=== PATIENT | female | born 1985 | race Caucasian/White ===

== ENCOUNTER 2017-06-21 11:31 | Emergency (ER) | payer OTHER ==
[~2017-06-21] VITALS: Ht 182.9 cm; Wt 91.2 kg
[2017-06-21 12:31] LABS: EOSINOPHIL (%) 0.9 % (0-5); EOSINOPHIL COUNT 0.1 K/uL (0-0.3); IMMATURE GRANULOCYTE (%) 0.3 % (0.0-0.7); INSTRUMENT ABS NEUTROPHIL CT 6.4 K/uL; LYMPHOCYTE COUNT 1.8 K/uL (1.0-2.8); MCH 29.9 PG (29.0-34.0); MCHC 34.6 G/DL (30.0-36.0); MCV 86.5 FL (83-99); MEAN PLAT.VOLUME 10.1 uM^3 (9.5-12.4); MONOCYTE (%) 6.6 % (3-12); MONOCYTE COUNT 0.6 K/uL (0-0.8); NEUTROPHIL (%) 71.8 % (45-76); NEUTROPHIL COUNT 6.4 K/uL (1.8-6.4); PLATELET COUNT 258 K/uL (156-360); RBC DIS.WIDTH-CV 11.9 % (11.8-14.6); RBC DIS.WIDTH-SD 37.6 % (39-53); RED BLOOD COUNT 4.51 M/uL (3.80-5.20)
[2017-06-21 12:42] LABS: CHLORIDE 107 mEq/L (99-109); POTASSIUM 4.4 mEq/L (3.7-5.4); SODIUM 138 mEq/L (136-147)
[2017-06-21 12:44] LABS: GLUCOSE 94 mg/dL (70-99)
[2017-06-21 12:45] LABS: ANION GAP 13 MEQ/L (2-14)
[2017-06-21 12:48] LABS: GFR ESTIMATE (CALCULATED) > 59 mL/min/
[2017-06-21 12:49] LABS: UREA NITROGEN (BUN) 11 mg/dL (9-23)
[2017-06-21 13:42] LABS: ADD MIUA? YES; BILIRUBIN NEGATIVE; BLOOD SMALL; COLOR YELLOW ((YELLOW)); GLUCOSE (STRIP) NEGATIVE; KETONES NEGATIVE; LEUKOCYTES NEGATIVE; NITRITE NEGATIVE; PROTEIN (STRIP) NEGATIVE; SPECIFIC GRAVITY 1.011 (1.000-1.030); UROBILINOGEN 0.2 MG/DL (0.2-1.0)
[2017-06-21 13:52] LABS: BACTERIA NONE SEEN /HPF; EPITHELIAL CELLS RARE /HPF; MUCUS NONE SEEN /LPF; RED BLOOD CELLS 0-5 /HPF (0-5); UCUL ADDED? NO; WHITE BLOOD CELLS 0-5 /HPF (0-5)
[2017-06-21] MEDS ORDERED: CITRATE OF MAG296 ML PO (15:17)
[2017-06-21 15:41] VITALS: BP 111/70
== END 2017-06-21 15:44 | disposition home or self-care (01) ==
LOC: EME 11:31
PROVIDERS: Emergency Medicine
DX: K59.00 Constipation, unspecified (principal); M41.9 Scoliosis, unspecified
CPT/HCPCS: 74176; 80048; 81003; 84703; 85025; 99281; 99285; J2270; J2405; J7030

== ENCOUNTER 2018-05-07 16:28 | Emergency (ER) | payer OTHER ==
[~2018-05-07] VITALS: Ht 182.9 cm; Wt 91.1 kg
[~2018-05-07 16:28] MED LIST: CITRATE OF MAG296 ML PO
[2018-05-07] MEDS ORDERED: ROBAXIN750 MG PO (20:39)
[2018-05-07] MEDS ORDERED: IBUPROFEN600 MG PO (20:39)
[2018-05-07] MEDS ORDERED: LIDODERM 5% P1 PATCH TD (20:39)
[2018-05-07 21:00] VITALS: BP 105/76
== END 2018-05-07 21:23 | disposition home or self-care (01) ==
LOC: EME 16:28
DX: M54.5 Low back pain (principal); M41.9 Scoliosis, unspecified; Z98.1 Arthrodesis status; Z88.2 Allergy status to sulfonamides; Z88.1 Allergy status to other antibiotic agents
CPT/HCPCS: 72070; 72100; 99281; 99284; J1885